=== PATIENT | male | born 1955 | race Caucasian/White ===

== ENCOUNTER 2019-01-17 08:29 | Day surgery (SDC) ==
[~2019-01-17 08:29] MED LIST: BRIMONIDINE TARTRATE 0.2% OPTH SOL OP PRN; BSS WITH EPINEPHRINE OP ONE; DEX-MOXI-KETOR OPTH INJ 1/0.5/0.4 MG/ML IO ONE; LIDOCAINE 1% 20 ML MDV ID STA; LIDOCAINE 1%/PHENYLEPHRINE 1.5% BSS (SURGERY) INTRAOCULA ONE; ZOFRAN 4 MG/2 ML IVP ONE
[2019-01-17] MEDS: BETADINE OPTH PREP OP PRN ×2 (09:35→10:18)
[2019-01-17] MEDS: CYCLOGYL 2% OPTH OP PRN ×3 (09:35→09:45)
[2019-01-17] MEDS: TETRACAINE 0.5% UNIT-DOSE OP PRN ×2 (09:35→10:18)
[2019-01-17] MEDS ORDERED: VERSED ONE (10:18)
[2019-01-17] MEDS ORDERED: ZOFRAN 4 MG/2 ML ONE (10:18)
[2019-01-17] MEDS ORDERED: SUBLIMAZE ONE (10:18)
[2019-01-17 14:27] VITALS: TEMP 97.6
[2019-01-18 15:55] VITALS: BP 132/78
== END 2019-01-17 11:35 | disposition home or self-care (01) ==
LOC: SURG 08:29
PROVIDERS: ATTEND Ophthalmology
DX: H25.811 Combined forms of age-related cataract, right eye (principal)
CPT/HCPCS: 82962